=== PATIENT | female | born 2000 | race Two or more races ===

== ENCOUNTER 2022-05-16 12:58 | Emergency (ER) | payer MEDICAID ==
[~2022-05-16] VITALS: Ht 154.9 cm; Wt 49.9 kg
[2022-05-16 13:17] VITALS: BP 139/68
[2022-05-16] MEDS ORDERED: HYDR-4902 PO (17:53)
== END 2022-05-16 18:10 | disposition home or self-care (01) ==
LOC: ER 12:58
DX: M54.12 Radiculopathy, cervical region (principal)